=== PATIENT | female | born 1995 | race Two or more races ===

== ENCOUNTER 2018-10-03 21:49 | Emergency (ER) | payer OTHER ==
[~2018-10-03] VITALS: Ht 162.6 cm; Wt 54.4 kg
--- NOTE | 2018-10-03 21:49 | NUR ---
ED Nurse Note: unknown med hx or allergy status at this time.
[2018-10-03] MEDS ORDERED: Naloxone 1mg/ml 2ml IVP ONE (22:00)
--- NOTE | 2018-10-03 22:08 | NUR ---
ED Nurse Note: Patient presents BIBA with LOC, recently administered narcan for possible drug overdose. Francisco Javier has no pertinent health history readily identifiable. unable to assess for allergies. patient given another dose of narcan, no change in condition. vital signs are stable. Patient is asleep, ariway open, breathing normal, regular and even.
--- NOTE | 2018-10-03 22:10 | Emergency Room Report ---
History of Present Illness General Chief Complaint: Overdose Source: EMS Present Illness HPI Is a 22-year-old female who presents with chief complaint of drug overdose. She her boyfriend were at a sober living. There were found unresponsive with pinpoint pupil. Narcan was given and he woke up. They admit to using heroin and GHB. After short period time she became combative and then now somnolent. Pupils were dilated but are now 3 mm reactive. No other injury. No other history can be obtained from this patient because of her condition. Allergies: Coded Allergies: UNABLE TO ASSESS (Unverified , 10/03/18) Patient History Past Medical History: see triage record, old chart reviewed Past Surgical History: unable to obtain Pertinent Family History: unable to obtain Social History: Reports: drug use Last Menstrual Period: unknown Now: No - unknown Immunizations: other Reviewed Nursing Documentation: PMH: Agreed; PSxH: Agreed Nursing Documentation-PMH Past Medical History: Deferred Review of Systems All Other Systems: limited - Secondary to her condition Physical Exam Vital Signs Date Time Temp Pulse Resp B/P (MAP) Pulse Ox O2 Delivery O2 Flow Rate FiO2 10/03/18 21:44 98 18 140/76 97 Room Air vitals normal Sp02 EP Interpretation: reviewed, normal General Appearance: well appearing, no apparent distress, other - Sleepy Head: normocephalic, atraumatic Eyes: bilateral eye PERRL, bilateral eye EOMI ENT: hearing grossly normal, normal pharynx Neck: full range of motion, supple, no meningismus Respiratory: chest non-tender, lungs clear, normal breath sounds Cardiovascular #1: regular rate, rhythm, no murmur Gastrointestinal: normal bowel sounds, non tender, no mass, no organomegaly, no bruit, non-distended Musculoskeletal: back normal, normal range of motion Neurologic: grossly normal Skin: warm/dry Medical Decision Making Diagnostic Impression: Primary Impression: Drug overdose Qualified Codes: T50.901A - Poisoning by unspecified drugs, medicaments and biological substances, accidental (unintentional), initial encounter Additional Impressions: Cocaine abuse Opiate abuse, episodic ER Course She presents with a drug overdose accommodation of heroin and GHB. She became more awake after Narcan but still sleeping. Vital signs are stable. We'll observe until clinical sobriety. Patient presents with drug overdose. Polysubstance in nature. No evidence of any bleed or electrolyte abnormality. Patient is slowly waking up. Knows that she is in the hospital. We'll discharge home in the morning. Lab Results Impression labs unremarkable Last Vital Signs Date Time Temp Pulse Resp B/P (MAP) Pulse Ox O2 Delivery O2 Flow Rate FiO2 10/03/18 21:44 98 18 140/76 97 Room Air Status: improved Disposition: HOME, SELF-CARE Condition: Stable Additional Instructions: abstain from drugs and alcohol. Continue with rehab. Return if worse. Everardo Fuentes MD Oct 03, 2018 22:10
[2018-10-03 22:11] VITALS: BP 124/75
--- NOTE | 2018-10-03 22:46 | NUR ---
ED Nurse Note: Patient sleeping, breathing audible, even, regular. vital signs stable. No s/s of acute distress.
[2018-10-03 22:47] VITALS: BP 141/91
[2018-10-03 23:15] VITALS: BP 143/102
--- NOTE | 2018-10-03 23:46 | NUR ---
ED Nurse Note: Patient still asleep. Patient remains unresponsiver to name or sternal rub. vital signs are stable, breathing is regular, even and non-labored.
[2018-10-03 23:47] VITALS: BP 141/96
[2018-10-04 00:44] VITALS: BP 139/88
[2018-10-04 01:52] LABS: BASOPHILS % (AUTO) 0.5 % (0.0-2.0); EOSINOPHILS % (AUTO) 0.1 % (0.0-3.0); HEMATOCRIT 45.2 % (37.0-47.0); HEMOGLOBIN 15.5 G/DL (12.0-16.0); LYMPHOCYTES % (AUTO) 21.2 % (20.0-45.0); MEAN CORPUSCULAR VOLUME 91 FL (80-99); MONOCYTES % (AUTO) 3.4 % (1.0-10.0); NEUTROPHILS % (AUTO) 74.7 % (45.0-75.0); PLATELET COUNT 209 K/UL (150-450); RED BLOOD COUNT 4.95 M/UL (4.20-5.40); RED CELL DISTRIBUTION WIDTH 10.5 % (11.6-14.8); WHITE BLOOD COUNT 6.7 K/UL (4.8-10.8)
[2018-10-04 01:53] LABS: APPEARANCE,URINE CLEAR; BILIRUBIN, URINE NEGATIVE (NEGATIVE); COLOR,URINE PALE YELLOW; GLUCOSE, URINE (UA) NEGATIVE (NEGATIVE); KETONES,URINE 2+ (NEGATIVE); LEUKOCYTE ESTERASE ,URINE NEGATIVE (NEGATIVE); NITRITE,URINE NEGATIVE (NEGATIVE); PH,URINE 6 (4.5-8.0); PROTEIN,URINE NEGATIVE (NEGATIVE); UROBILINOGEN,URINE NORMAL MG/DL (0.0-1.0)
--- NOTE | 2018-10-04 02:03 | NUR ---
ED Nurse Note: Patient headed down for CT without contrast.
[2018-10-04 02:06] LABS: ANION GAP 12 mmol/L (5-15); BLOOD UREA NITROGEN 7 mg/dL (7-18); CARBON DIOXIDE 27 MMOL/L (21-32); CHLORIDE 104 MMOL/L (98-107); CREATININE 0.7 MG/DL (0.55-1.30); POTASSIUM 4.1 MMOL/L (3.5-5.1); SODIUM 143 MMOL/L (136-145)
[2018-10-04 03:06] VITALS: BP 112/57
--- NOTE | 2018-10-04 03:07 | NUR ---
ED Nurse Note: Patient sleeping, vital signs within normal range. no s/s of distress.
[2018-10-04 03:40] VITALS: BP 129/86
--- NOTE | 2018-10-04 03:40 | NUR ---
ED Nurse Note: Patient is now awake and alert, able to converse and is aware of her surroundings. vital signs are stable.
[2018-10-04 07:25] VITALS: BP 136/89
--- NOTE | 2018-10-04 07:29 | NUR ---
ED Nurse Note: Patient is cleared for discharge by [facility]. Patient is ambulatory with steady gait, A&Ox4 and was given a taxi voucher. IV removed ID band removed.
== END 2018-10-04 07:30 | disposition home or self-care (01) ==
LOC: EDBD 21:49 → EMR 23:58
DX: T50.901A Poisoning by unspecified drugs, medicaments and biological substances, accidental (unintentional), initial encounter (principal); Y92.89 Other specified places as the place of occurrence of the external cause; F11.10 Opioid abuse, uncomplicated; F14.10 Cocaine abuse, uncomplicated
CPT/HCPCS: 36415; 70450; 80048; 80307; 81001; 81025; 85025; 96361; 96374; 99284; G0480; J2310; 80329